=== PATIENT | female | born 1995 | race American Indian/Alaskan Native ===

== ENCOUNTER 2020-06-15 12:36 | Emergency (ER) | payer BC ==
[2020-06-15 13:14] VITALS: BP 130/85
[2020-06-15] MEDS ORDERED: dexAMETHasone 20 MG/5 ML VIAL IM ONE (13:40)
[2020-06-15] MEDS ORDERED: PENICILLIN G BENZATHINE 1.2 MILLION UNIT/2 ML INJ IM ONE (13:40)
--- NOTE | 2020-06-15 14:45 | Emergency Department Report ---
Minor Respiratory - HPI Chief Complaint: Sore Throat Stated Complaint: TONSILS/UVULA SORE Time Seen by Provider: 06/15/20 13:16 Minor Respiratory: Yes Rhinorrhea, Yes Sore Throat, Yes Able to Tolerate Fluids, Yes Sick Contacts, No Ear Pain, No Cough, No Hemoptysis, No Chest Pain, No Shortness of Breath, No Fever Other History: Chief complaint: I have pus pockets in the back of my throat. HPI this is a healthy 25-year-old female without significant past medical history who presents with sore throat for 2 days. She has nasal congestion. She denies fever. She denies cough. Mild pain patient works in [employer] ED Review of Systems ROS: Stated complaint: TONSILS/UVULA SORE Other details as noted in HPI Constitutional: denies: chills, fever, malaise ENT: throat pain, congestion Respiratory: denies: cough, shortness of breath Cardiovascular: denies: chest pain Gastrointestinal: denies: abdominal pain, nausea, vomiting ED Past Medical Hx - Past Medical History Previous Medical History?: No - Surgical History Past Surgical History?: No Minor Respiratory Exam - Exam General: Vital signs noted. No distress. Alert and acting appropriately. Well-appearing nontoxic normal voice normal neck size HEENT: Yes Pharyngeal Erythema, Yes Pharyngeal Exudates, Yes Moist Mucous Membranes, Yes Rhinorrhea, No Conjuctival Injection Neck: Yes Adenopathy, No Supple Lungs: Yes Good Air Exchange, No Wheezes, No Ronchi, No Stridor, No Cough, No Retractions Heart: Yes Regular, No Murmur Abdomen: Yes Normal Bowel Sounds, No Tenderness, No Peritoneal Signs Skin: No Rash, No Edema Neurologic: Alert and oriented, no deficits. Musculoskeletal: Unremarkable. ED Course Vital Signs 06/15/20 13:13 Temperature 98.6 F Pulse Rate 104 H Respiratory 18 Rate Blood Pressure 130/85 O2 Sat by Pulse 96 Oximetry ED Medical Decision Making - Medical Decision Making Acute streptococcal pharyngitis diagnosed per [facility] criteria: Patient received Bicillin and IM dexamethasone. Critical care attestation.: If time is entered above; I have spent that time in minutes in the direct care of this critically ill patient, excluding procedure time. ED Disposition Clinical Impression: Strep throat Disposition: DC-01 TO HOME OR SELFCARE Is pt being admited?: No Does the pt Need Aspirin: No Condition: Stable Instructions: Strep Throat, Adult, [id number] Referrals: YURIDIA DOLAN MD [Staff Physician] - 3-5 Days Forms: Work/School Release Form(ED)
== END 2020-06-15 15:02 | disposition home or self-care (01) ==
LOC: ED 12:36
DX: J02.9 Acute pharyngitis, unspecified (principal); J34.89 Other specified disorders of nose and nasal sinuses
CPT/HCPCS: 96372; 99281; J0561; J1100